=== PATIENT | male | born 1945 | race Caucasian/White ===

== ENCOUNTER 2019-06-03 13:58 | Outpatient (CLI) | payer OTHER, SELFPAY ==
[2019-06-03 14:58] LABS: Basophils % 0.6 %; Eosinophils # 0.3 10^3/uL (0.0-0.8); Hematocrit 34.6 % (42.0-52.0); Hemoglobin 11.2 g/dL (11.7-16.6); Lymphocytes # 1.3 10^3/uL (0.8-4.8); Lymphocytes % 24.1 %; Mean Corpuscular HGB Conc 32.4 g/dL (30.0-36.0); Mean Corpuscular Hemoglobin 31.7 pg (28.0-34.0); Mean Platelet Volume 10.6 fL (7.4-10.4); Monocytes # 0.3 10^3/uL (0.2-0.9); Monocytes % 5.9 %; Neutrophils # 3.4 10^3/uL (1.8-7.7); Neutrophils % 64.2 %; Nucleated Red Blood Cells % 0 %; Platelet Count 199 10^3/cmm (130-400); Red Blood Count 3.53 10^6/uL (4.1-5.3); Red Cell Distribution Width 12.2 % (12.1-15.1); White Blood Count 5.2 10^3/uL (4.0-10.0)
--- NOTE | 2019-06-03 16:27 | ONC FU_ITS ---
Dr. Dickinson follow up note Patient: David Osei Unit #: [id number]: 1945 Dicatated By: Alysa Dickinson M.D.Date of Visit:Jun 03, 2019 Onc Med Follow-up/Prog Note History of Present Illness: Mr. David Osei, 73-year-old gentleman with history of iron deficiency anemia diagnosed in 2015 at that time he underwent colonoscopy, as per patient and his , it was normal and there was no evidence of malignancy. No EGD or capsule ENDOSCOPY was done at that time. Patient was treated with multivitamin plus iron with some response but recently his start giving him oral iron, and he is tolerating it well. Denies any melena or hematochezia but darker stools since taking oral iron. No jaundice, no hemoptysis or hematemesis, no shortness of breath at rest, no palpitation. Appetite is good. No heartburn indigestion. No diarrhea but occasional constipation. No fever or chills, no weight loss, no abdominal pain. as per patient since his last visit more than year ago, his hemoglobin is going down slowly despite of double dose of oral iron and recently checked hemoglobin on 03/31/2019 showed hemoglobin 11.4 g hematocrit 34 white blood count 7.7 platelets 236,000 and also complaining of generalized weakness and fatigue. But denies any jaundice, denies any melena or hematochezia, denies any hemoptysis or hematemesis. Denies any blood transfusion, denies any recent hospitalization. Tolerating oral iron well otherwise. Denies any night sweats, denies any peripheral lymphadenopathy, denies any recent fever.Tolerating oral iron well Came for follow-up, denies any specific complaints, no fever or chills, no nausea or vomiting, no diarrhea constipation, no heartburn indigestion, tolerating oral iron well, patient said he skipped few days but now taking iron on a regular basis. Medications: Aspirin 1 Tablet (of 81 mg) Oral at bedtime, Carbidopa-Levodopa 2 Tablet (of 25-100 mg) Oral daily, Donepezil HCl 1 Tablet (of 10 mg) Oral daily, Ferrous Sulfate 1 Tablet (of 325 (65 fe) mg) Oral at bedtime, Finasteride 1 Tablet (of 5 mg) Oral at bedtime, Insulin Glargine 11 Units (of 100 Units/mL) Subcutaneous b.i.d., Insulin Lispro 6 Units (of 100 Units/mL) Subcutaneous t.i.d., Lisinopril 1 Tablet (of 40 mg) Oral daily, Modafinil 1 Tablet (of 100 mg) Oral b.i.d., Pantoprazole Sodium 1 Tablet (of 40 mg) Tablet, enteric coated Oral daily, Simvastatin 0.5 Tablet (of 80 mg) Oral at bedtime, Sulfamethoxazole-Trimethoprim 1 Tablet (of 800-160 mg) Oral b.i.d., Tamsulosin HCl 1 Tablet (of 0.4 mg) Capsule Oral at bedtime, Trospium Chloride 1 Tablet (of 20 mg) Oral daily Allergies: This patient has no documented allergies. Review of Systems: Review of Systems is not available for this patient. Vital Signs: Performed on Jun 03, 2019 15:54 Height - 74.00 in Weight - 168.0 lbs (LOW) BSA - 2.02 sq.m BMI - 21.57 Temperature - 97.5 F (LOW) Pulse - 91 /min Respiration - 26 /min BP - 132/66 mm(hg) O2 Sat - 98 % Pain - 0 Performance Status: 1 - No physically strenuous activity, but ambulatory and able to carry out light or sedentary work (e.g. office work, light house work). (ECOG) Physical Examination: ENMT - No oral exudates, ulcers, masses, thrush or mucositis. Oropharynx clear. Tongue normal, Respiratory - Lungs are clear to auscultation without rhonchi or wheezing, Cardiovascular - Regular rate and rhythm of heart, Abdomen - Non-tender, non-distended, Good bowel sounds. No guarding or rebound tenderness. No pulsatile masses, Extremities - no edema. Lab/Imaging: Test performed on Apr 16, 2019 10:20 Ferritin 104.0 ng/ml Folate, Serum 13.3 ng/mL Iron 33 ug/dL Vitamin B12 380 pg/mL % Iron Saturation 17.0 % UIBC 161 ug/dL WBC 4.7 10 3/uL RBC 3.43 10 6/uL HGB 11.2 g/dL HCT 33.3 % MCV 97.1 fl MCH 32.7 pg MCHC 33.6 g/dl RDW 12.6 % Platelet Count 190 10 3/cmm MPV 10.7 fl Neutrophils 3.0 10 3/uL Lymphocytes 1.0 10 3/uL Monocytes 0.4 10 3/uL Eosinophils 0.2 10 3/uL Basophils 0.0 10 3/uL Neutrophil % 65.3 % Lymphocyte % 20.8 % Monocyte % 9.2 % Eosinophil % 4.3 % Basophils % 0.2 % Impression: History of anemia, as per family it was iron deficiency, (no record available ) now on oral iron, with excellent response as today's lab shows normalization of hemoglobin and iron stores,e.g White blood count 6.8. Hemoglobin 13.9, hematocrit 41.3 MCV 94.8, platelets 200,000 ferritin 176, TIBC 320. Colonoscopy done in 2015, as per and patient it was normal, no evidence of malignancy, Underwent EGD and colonoscopy on 06/05/2018 showed no evidence of gross bleeding or any malignancy Plan: Discussed with patient regarding his labs white blood count 5.2 hemoglobin 11.2 crit 34.6 platelets 199,000 MCV 98 Clinically, patient is doing well, tolerating oral iron well his follow-up lab shows stable, but mild anemia and his iron studies done earlier shows ferritin 104, but iron saturations 17%, iron 33, both are low. Patient was advised to continue oral iron for another month and then return to clinic in one month with CBC and iron studies if it shows persistent iron deficiency then he may have iron malabsorption plus minus chronic GI blood loss especially from small bowel. And in that case we may consider parenteral iron. Signed By: Alysa Dickinson M.D. <<Signature on File>>
== END 2019-06-03 13:59 | disposition home or self-care (01) ==
LOC: ONCMED 14:00
PROVIDERS: Family Provider Internal Medicine; PCP Internal Medicine; Visit Provider Internal Medicine Hematology & Oncology
DX: D50.9 Iron deficiency anemia, unspecified (principal); Z79.82 Long term (current) use of aspirin
CPT/HCPCS: 36415; 85025; G0463

== ENCOUNTER 2019-07-04 10:18 | Outpatient (CLI) | payer OTHER, SELFPAY ==
[2019-07-04 11:11] LABS: Basophils % 0.5 %; Eosinophils # 0.4 10^3/uL (0.0-0.8); Eosinophils % 7.7 %; Hematocrit 34.1 % (42.0-52.0); Hemoglobin 11.3 g/dL (11.7-16.6); Lymphocytes # 1.1 10^3/uL (0.8-4.8); Lymphocytes % 20.9 %; Mean Corpuscular HGB Conc 33.1 g/dL (30.0-36.0); Mean Corpuscular Hemoglobin 32.8 pg (28.0-34.0); Mean Corpuscular Volume 99.1 fL (80-94); Mean Platelet Volume 10.3 fL (7.4-10.4); Monocytes # 0.4 10^3/uL (0.2-0.9); Monocytes % 6.8 %; Neutrophils # 3.5 10^3/uL (1.8-7.7); Neutrophils % 63.9 %; Nucleated Red Blood Cells % 0 %; Platelet Count 202 10^3/cmm (130-400); Red Blood Count 3.44 10^6/uL (4.1-5.3); Red Cell Distribution Width 12.2 % (12.1-15.1); White Blood Count 5.5 10^3/uL (4.0-10.0)
[2019-07-04 11:13] LABS: Iron 32 ug/dL (59-158); Percent Saturation 17.1 % (20-50); Total Iron Binding Capacity 187 mcg/dl; Unsaturated Iron Binding 155 ug/dL (112-347)
--- NOTE | 2019-07-04 12:06 | ONC FU_ITS ---
Dr. Dickinson follow up note Patient: David Osei Unit #: [id number]: 1945 Dicatated By: Alysa Dickinson M.D.Date of Visit:Jul 04, 2019 Onc Med Follow-up/Prog Note History of Present Illness: Mr. David Osei, 73-year-old gentleman with history of iron deficiency anemia diagnosed in 2016 at that time he underwent colonoscopy, as per patient and his , it was normal and there was no evidence of malignancy. No EGD or capsule ENDOSCOPY was done at that time. Patient was treated with multivitamin plus iron with some response but recently his start giving him oral iron, and he is tolerating it well. Denies any melena or hematochezia but darker stools since taking oral iron. No jaundice, no hemoptysis or hematemesis, no shortness of breath at rest, no palpitation. Appetite is good. No heartburn indigestion. No diarrhea but occasional constipation. No fever or chills, no weight loss, no abdominal pain. as per patient since his last visit more than year ago, his hemoglobin is going down slowly despite of double dose of oral iron and recently checked hemoglobin on 03/31/2019 showed hemoglobin 11.4 g hematocrit 34 white blood count 7.7 platelets 236,000 and also complaining of generalized weakness and fatigue. But denies any jaundice, denies any melena or hematochezia, denies any hemoptysis or hematemesis. Denies any blood transfusion, denies any recent hospitalization. Tolerating oral iron well otherwise. Denies any night sweats, denies any peripheral lymphadenopathy, denies any recent fever.Tolerating oral iron well, But with persistent iron deficiency as his repeat labs done on 07/04/2019 shows iron saturation 17.1%, normal being 20-50% Iron 32, normal being 59-158 while on oral iron Came for follow-up, complaining of generalized weakness and fatigue and darker stools but no fresh blood. No shortness of breath or palpitation at rest, no jaundice, no hematuria no hemoptysis or hematemesis. Medications: Aspirin 1 Tablet (of 81 mg) Oral at bedtime, Carbidopa-Levodopa 2 Tablet (of 25-100 mg) Oral four times a day, Donepezil HCl 1 Tablet (of 10 mg) Oral daily, Ferrous Sulfate 1 Tablet (of 325 (65 fe) mg) Oral at bedtime, Finasteride 1 Tablet (of 5 mg) Oral at bedtime, Insulin Glargine 11 Units (of 100 Units/mL) Subcutaneous b.i.d., Insulin Lispro 6 Units (of 100 Units/mL) Subcutaneous t.i.d., Lisinopril 1 Tablet (of 40 mg) Oral daily, Modafinil 0.5 Tablet (of 100 mg) Oral b.i.d., Pantoprazole Sodium 1 Tablet (of 40 mg) Tablet, enteric coated Oral daily, Simvastatin 0.5 Tablet (of 80 mg) Oral at bedtime, Tamsulosin HCl 1 Tablet (of 0.4 mg) Capsule Oral at bedtime, Trospium Chloride 1 Tablet (of 20 mg) Oral daily Allergies: This patient has no documented allergies. Review of Systems: Constitutional - Appetite is good and weight is stable. No fever, chills, hot flashes, or night sweats. Energy level is poor, ENMT - No sinus congestion/drainage. No mouth sores. No sore throat or difficulty swallowing, Hematologic/Lymphatic - No abnormal bruising or bleeding, Respiratory - No shortness of breath. No cough. No pleuritic pain or hemoptysis, Cardiovascular - No angina pain. No palpitations, Gastrointestinal - No nausea or vomiting. No heartburn or acid reflux. No diarrhea. Occasional constipation. Positive for dark stools (Pt is taking Iron supplement), Genitourinary (M) - Patient has some difficulty with urination as well as urinary frequency, Musculoskeletal - No joint or bone pain, Neurologic - No headache or dizziness. No numbness/paresthesias or other focal neurologic symptoms, Psychiatric - No anxiety or depression. No insomnia. Vital Signs: Performed on Jul 04, 2019 11:50 Height - 74.00 in Weight - 169.8 lbs (HIGH) BSA - 2.03 sq.m BMI - 21.80 Temperature - 98.2 F (LOW) Pulse - 78 /min Respiration - 18 /min BP - 132/87 mm(hg) O2 Sat - 100 % Pain - 0 Performance Status: 0 - Fully active, able to carry on all predisease activities without restrictions. (ECOG) Physical Examination: ENMT - No oral exudates, ulcers, masses, thrush or mucositis. Oropharynx clear. Tongue normal, Respiratory - Lungs are clear to auscultation without rhonchi or wheezing, Cardiovascular - Regular rate and rhythm of heart, Abdomen - Non-tender, non-distended,Good bowel sounds. No guarding or rebound tenderness. No pulsatile masses, Extremities - no edema. Lab/Imaging: Test performed on Jul 04, 2019 10:28 Iron 32 ug/dL UIBC 155 ug/dL WBC 5.5 10 3/uL RBC 3.44 10 6/uL HGB 11.3 g/dL HCT 34.1 % MCV 99.1 fL MCH 32.8 pg MCHC 33.1 g/dL RDW 12.2 % Platelet Count 202 10 3/cmm MPV 10.3 fL Neutrophils 3.5 10 3/uL Lymphocytes 1.1 10 3/uL Monocytes 0.4 10 3/uL Eosinophils 0.4 10 3/uL Basophils 0.0 10 3/uL Neutrophil % 63.9 % Lymphocyte % 20.9 % Monocyte % 6.8 % Eosinophil % 7.7 % Basophils % 0.5 % Test performed on Apr 16, 2019 10:20 Ferritin 104.0 ng/ml Folate, Serum 13.3 ng/mL Vitamin B12 380 pg/mL % Iron Saturation 17.0 % Impression: History of anemia, as per family it was iron deficiency, (no record available ) now on oral iron, with excellent response as today's lab shows normalization of hemoglobin and iron stores,e.g White blood count 6.8. Hemoglobin 13.9, hematocrit 41.3 MCV 94.8, platelets 200,000 ferritin 176, TIBC 320. 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 We will obtain approval from his insurance and patient return to clinic in 2 months with CBC and iron studies. Signed By: Alysa Dickinson M.D. <<Signature on File>>
== END 2019-07-04 10:19 | disposition home or self-care (01) ==
LOC: ONCMED 10:18
PROVIDERS: Family Provider Internal Medicine; PCP Internal Medicine; Visit Provider Internal Medicine Hematology & Oncology
DX: D50.9 Iron deficiency anemia, unspecified (principal); Z79.82 Long term (current) use of aspirin; Z79.899 Other long term (current) drug therapy; K90.9 Intestinal malabsorption, unspecified
CPT/HCPCS: 36415; 83540; 83550; 85025; 99214

== ENCOUNTER 2019-07-14 13:22 | Outpatient (CLI) | payer OTHER, MEDICARE, SELFPAY ==
[2019-07-14] MEDS: sodium chloride 0.9% 100 ML 400 ML (14:00)
== END 2019-07-14 13:23 | disposition home or self-care (01) ==
LOC: ONCMED 13:23
PROVIDERS: Family Provider Internal Medicine; PCP Internal Medicine; Visit Provider Internal Medicine Medical Oncology
DX: D50.9 Iron deficiency anemia, unspecified (principal)
CPT/HCPCS: 96365; J1439

== ENCOUNTER 2019-07-21 10:42 | Outpatient (CLI) | payer OTHER, MEDICARE, SELFPAY | END 2019-07-21 10:43 | disposition home or self-care (01) | LOC: ONCMED 10:46 | PROVIDERS: Family Provider Internal Medicine; PCP Internal Medicine; Visit Provider Internal Medicine Medical Oncology | DX: D50.9 Iron deficiency anemia, unspecified (principal) | CPT/HCPCS: 96365; J1439 ==